=== PATIENT | male | born 1960 | race African-American/Black ===

== ENCOUNTER 2019-10-17 22:10 | Emergency (ER) | payer MEDICAID ==
[~2019-10-17] VITALS: Ht 180.3 cm; Wt 106.6 kg
--- NOTE | 2019-10-17 22:20 | NUR ---
Pt BIB [facility] from [facility] where patient is being quarantined for testing COVID (+) since 10/03/2019. Per paramedics, pt dialed 911 because of severe burning in urination and blood in the urine. Upon arrival patient is brought to negative pressure Room 3, and placed on droplet/airborne precautions for Covid. Pt is awake, alert and verbally responsive. Able to narrate what happened, according to him it started today. No other changes in lifestyle/ADL noted since pain started. No other complaints. Dr. Kay also present at bedside for MSE at this time. Rectal examination done, and patient placed on comfortable position. Water offered because patient is unable to produce any urine sample. Side rails up x 2. Bed locked in position. Safety precautions maintained.
[2019-10-17] MEDS ORDERED: OXYCODONE/APAP 5-325 MG TABLET PO ONE (22:30)
[2019-10-17] MEDS ORDERED: ONDANSETRON ODT 4 MG TAB.RAPDIS SL ONE (22:30)
[2019-10-17 22:32] LABS: *OCCULT BLOOD STOOL POSITIVE (NEGATIVE)
[2019-10-17] MEDS ORDERED: ONDANSETRON ODT 4 MG TAB.RAPDIS ONE (22:35)
[2019-10-17] MEDS ORDERED: OXYCODONE/APAP 5-325 MG TABLET ONE (22:35)
[2019-10-17] MEDS ORDERED: RIVA15TA2 PO (22:40)
[2019-10-17] MEDS ORDERED: BUME1TAB8 PO (22:40)
[2019-10-17] MEDS ORDERED: GLIP5TAB13 PO (22:40)
[2019-10-17] MEDS ORDERED: CARV6.25 PO (22:40)
[2019-10-17] MEDS ORDERED: DIPH25CA83 PO (22:40)
[2019-10-17] MEDS ORDERED: MAGN400O6 PO (22:40)
[2019-10-17] MEDS ORDERED: METF-442 PO (22:40)
[2019-10-17] MEDS ORDERED: SPIR25TA PO (22:40)
[2019-10-17] MEDS ORDERED: ONDA8TAB6 PO (22:40)
[2019-10-17] MEDS ORDERED: IBUP800T54 PO (22:40)
[2019-10-17] MEDS ORDERED: LISI2.5T2 PO (22:40)
[2019-10-17] MEDS ORDERED: TIOT18CA3 IH (22:40)
[2019-10-17] MEDS ORDERED: FERR325C PO (22:40)
[2019-10-17] MEDS ORDERED: METO1TAB38 PO (22:40)
[2019-10-17] MEDS ORDERED: LOPE2TAB25 PO (22:40)
[2019-10-17] MEDS ORDERED: DICL2.5G TP (22:40)
[2019-10-17] MEDS ORDERED: ATOR40TA29 PO (22:40)
[2019-10-17] MEDS ORDERED: ACET-2605 PO (22:40)
--- NOTE | 2019-10-17 22:41 | NUR ---
pharmaceutical laboratory technician at bedside. Pt refused blood to be drawn adamantly despite explanation of risks and benefit from RN and Dr. Kay. Pt states that, "i already did all that". Respected patient's decision to refuse care.
[2019-10-18 00:12] LABS: *BILIRUBIN,URIN 3+ (NEGATIVE); *BLOOD, URINE 3+ (NEGATIVE); *CLARITY,URINE TURBID (CLEAR); *KETONES,URINE 1+ (NEGATIVE); LEUKOCYTE ESTERASE ,URINE 3+ (NEGATIVE); UGLUCOSE NEGATIVE (NEGATIVE)
[2019-10-18 00:14] LABS: *COLOR,URINE BLOODY (YELLOW); NITRITE, URINE NEGATIVE (NEGATIVE)
[2019-10-18 00:15] LABS: BACTERIA,URINE NONE SEEN /HPF (NONE SEEN); RBC,URINE TNTC /HPF (0-3); SQUAMOUS EPITHELIAL CELL,UR NONE SEEN /HPF (NONE SEEN)
[2019-10-18 00:37] LABS: *AMPHETAMINE, URINE NEGATIVE (NEGATIVE); *BARBITURATE, URINE NEGATIVE (NEGATIVE); *CANNABINOID, URINE NEGATIVE (NEGATIVE); *COCCAINE, URINE NEGATIVE (NEGATIVE); *OPIATE, URINE NEGATIVE (NEGATIVE); *PHENCYCLIDINE SCREEN,URINE POSITIVE (NEGATIVE)
[2019-10-18] MEDS ORDERED: NITROFURANTOIN/NITROFURAN MAC 100 MG CAPSULE ONE (01:12)
[2019-10-18] MEDS ORDERED: levoFLOXacin 500 MG TABLET ONE (01:12)
[2019-10-18] MEDS ORDERED: PHENAZOPYRIDINE HCL 100 MG TABLET ONE (01:12)
[2019-10-18] MEDS ORDERED: PHENAZOPYRIDINE HCL 100 MG TABLET PO ONE (01:15)
[2019-10-18] MEDS ORDERED: NITROFURANTOIN/NITROFURAN MAC 100 MG CAPSULE PO ONE (01:15)
[2019-10-18] MEDS ORDERED: levoFLOXacin 500 MG TABLET PO ONE (01:15)
--- NOTE | 2019-10-18 01:47 | NUR ---
cleared patient for DC. All DC instructions given, along with prescription. Pt verbalized understanding. Called for [facility] ambulance to take him back to the [place] ([place] [address] quarantine facility), but their latest ETA was 10AM and 7AM. Pt wants to be Dc'ed soon. Called [facility], spoke with Adithya. They can provide transportation latest ETA 3:15 Am. Trip # [id number]. Explained to patient.
--- NOTE | 2019-10-18 02:03 | NUR ---
Dereck from [facility] called back stating that they are unable to take the patient because of insurance purposes. Nursing securities vault supervisor notified. Unable to give taxi voucher due to patient being Covid +. Will try to contact the patient's insurance provider.
--- NOTE | 2019-10-18 02:16 | NUR ---
Contacted [facility] [employer] ([phone]). S/W Betzaida. After 15 minutes, she was able to give me a Trip#[id number]. According to her it takes about 1-3 hours before a ride can be secured and ETA be provided. Also notified her that [facility] had an ambulance ready earlier and spoke with Dereck who had a ride ready, if not for insurance reasons. Betzaida said everything is noted and to just wait for the callback from [facility] [employer] router.
--- NOTE | 2019-10-18 02:18 | NUR ---
Pt provided with a blanket and allowed to rest in the room .Side rails up x 1, and bed locked in position. Fall/Safety/Covid Precautions maintained.
--- NOTE | 2019-10-18 03:40 | NUR ---
Received call from [facility] that the latest ambulance they can arrange is at 0730. Pt is sleeping at this time. Fall/Safety/Covid precautions maintained.
--- NOTE | 2019-10-18 04:15 | NUR ---
Pt woke up and stated that he cannot wait any longer for the transportation services and wanted to leave. Explained to him our Covid19+ policies and how it is best for him to wait for his transportation that has already been arranged for him. All the risks of breaking quarantine and walking back to the [facility] explained to patient, but patient insisted on leaving. Nursing supervisor shipfitters and MD made aware. Pt continued to be persistent and said, "I dont care I am leaving, Im going to walk it is two minutes away." Pt signed AMA paperwork. Refused to sign homeless waiver form. Left ER ambulating, steady gait.
[2019-10-18 04:24] VITALS: BP 110/71
--- NOTE | 2019-10-18 04:36 | NUR ---
S/w Niki from [facility] [phone] and informed her that patient left AMA and trip arranged to be cancelled.
== END 2019-10-18 04:20 | disposition left against medical advice (07) ==
LOC: ER 22:15
DX: N39.0 Urinary tract infection, site not specified (principal); R31.29 Other microscopic hematuria; K64.8 Other hemorrhoids; R19.5 Other fecal abnormalities; Z59.0 Homelessness; Z79.899 Other long term (current) drug therapy; E11.22 Type 2 diabetes mellitus with diabetic chronic kidney disease; I13.0 Hypertensive heart and chronic kidney disease with heart failure and stage 1 through stage 4 chronic kidney disease, or unspecified chronic kidney disease; N18.9 Chronic kidney disease, unspecified; I50.9 Heart failure, unspecified; Z79.01 Long term (current) use of anticoagulants; Z79.84 Long term (current) use of oral hypoglycemic drugs; J44.9 Chronic obstructive pulmonary disease, unspecified; Z86.718 Personal history of other venous thrombosis and embolism; Z86.19 Personal history of other infectious and parasitic diseases
CPT/HCPCS: 80307; 87077; 87086; A4663; Q0162